=== PATIENT | female | born 1985 ===

== ENCOUNTER 2018-05-06 15:34 | Inpatient (IN) | payer OTHER ==
[~2018-05-06] VITALS: Ht 157.5 cm; Wt 77.1 kg
[2018-05-06] MEDS ORDERED: ONDANSETRON 4 MG/2 ML VIAL ONE (16:27)
[2018-05-06] MEDS ORDERED: HYDROMORPHONE 2 MG/1 ML DISP.SYRIN ONE (16:27)
[2018-05-06] MEDS ORDERED: ONDANSETRON 4 MG/2 ML VIAL IV ONE (16:30)
[2018-05-06] MEDS ORDERED: HYDROMORPHONE 1 MG/1 ML DISP.SYRIN IV ONE (16:30)
[2018-05-06] MEDS ORDERED: IV NORMAL SALINE 1000 ML BAG IV ONE (16:30)
[2018-05-06 16:39] LABS: BASOPHILS # (AUTO) 0.1 K/uL (0.0-8.0); BASOPHILS % (AUTO) 0.4 % (0.0-2.0); EOSINOPHILS % (AUTO) 0.1 % (0.0-7.0); HEMATOCRIT 40.6 % (31.2-41.9); HEMOGLOBIN 13.4 g/dL (10.9-14.3); LYMPHOCYTES # (AUTO) 1.7 K/uL (20.0-40.0); LYMPHOCYTES % (AUTO) 11.9 % (20.5-51.5); MEAN CORPUSCULAR HEMOGLOBIN 25.3 uug (24.7-32.8); MEAN CORPUSCULAR HGB CONC 33 g/dL (32.3-35.6); MEAN CORPUSCULAR VOLUME 76.8 fL (75.5-95.3); MONOCYTES # (AUTO) 0.4 K/uL (2.0-10.0); MONOCYTES % (AUTO) 2.9 % (0.0-11.0); NEUTROPHILS # (AUTO) 12.1 K/uL (1.8-8.9); NEUTROPHILS % (AUTO) 84.7 % (38.5-71.5); PLATELET COUNT (AUTO) 423 K/uL (179-408); RED BLOOD CELL COUNT(AUTO) 5.28 MIL/uL (3.63-4.92); WHITE BLOOD COUNT (AUTO) 14.3 K/uL (3.8-11.8)
[2018-05-06 16:48] LABS: BILIRUBIN,DIRECT 0.1 mg/dL (0.0-0.2); BILIRUBIN,TOTAL 0.6 mg/dL (0.2-1.0); CREATININE 0.8 mg/dL (0.6-1.3); POTASSIUM 3.7 mmol/L (3.5-5.1); TOTAL PROTEIN, SERUM 8.4 g/dL (6.4-8.2)
--- NOTE | 2018-05-06 17:54 | NUR ---
PT OUT OF ER FOR CT.
[2018-05-06 18:07] LABS: *BILIRUBIN,URIN NEGATIVE (NEGATIVE); *BLOOD, URINE NEGATIVE (NEGATIVE); *CLARITY,URINE SLIGHTLY CLOUDY (CLEAR); *COLOR,URINE YELLOW (YELLOW); *KETONES,URINE TRACE (NEGATIVE); *PROTEIN,URINE NEGATIVE (NEGATIVE); *UROBILINOGEN,URINE 0.2 E.U./dl (NORMAL); LEUKOCYTE ESTERASE ,URINE NEGATIVE (NEGATIVE); NITRITE, URINE NEGATIVE (NEGATIVE); PH,URINE 8.5 (5.0-8.0); UGLUCOSE NEGATIVE (NEGATIVE)
[2018-05-06 18:09] LABS: *URINE HCG, QUAL NEGATIVE (NEGATIVE)
[2018-05-06 18:13] LABS: BACTERIA,URINE RARE /HPF (NONE SEEN); RBC,URINE 0-3 /HPF (0-3); SQUAMOUS EPITHELIAL CELL,UR MODERATE /HPF (NONE SEEN)
--- NOTE | 2018-05-06 18:37 | NUR ---
Patient is resting comfortably in bed with eyes closed, NAD noted. at the bedside.
--- NOTE | 2018-05-06 19:00 | NUR ---
RECEIVED SHIFT REPORT FROM LYDIA LOBO.
--- NOTE | 2018-05-06 19:19 | NUR ---
ARMANDO BYRNES AT BEDSIDE FOR PT UPDATE.
--- NOTE | 2018-05-06 19:26 | NUR ---
PAGED EPIC FOR PANEL CALL. AWAITING CALL BACK FROM REAGAN GLASS NP. ATTEMPT 1.
--- NOTE | 2018-05-06 19:41 | NUR ---
DR. SINGH SPEAKING TO REAGAN CARRION NP ([facility])
--- NOTE | 2018-05-06 19:48 | NUR ---
GAVE ADMITTING REPORT TO LYDIA MORA.
[2018-05-06 20:00] VITALS: BP 103/56
[2018-05-06] MEDS ORDERED: MORPHINE SULFATE 4 MG/1 ML DISP.SYRIN IV PRN (20:00)
[2018-05-06] MEDS ORDERED: ACETAMINOPHEN 325 MG TABLET PO PRN (20:00)
[2018-05-06] MEDS ORDERED: MAGNESIUM HYDROXIDE 30 ML LIQUID UDC PO PRN (20:00)
[2018-05-06] MEDS ORDERED: Z GUARD REMEDY PASTE 57 GM TUBE TOP PRN (20:00)
[2018-05-06] MEDS ORDERED: ONDANSETRON 4 MG/2 ML VIAL IV PRN (20:00)
--- NOTE | 2018-05-06 20:00 | NUR ---
Received patient from ER in stable condition. No acute distress noted. Admit Dx: Small Bowel Obstruction under [employer] Chelsey Lester. Vital signs within range upon admission. Patient denying pain/SOB. Denying N/V. A/Ox4 & able to make all her needs known. Noted with 20G right AC IV site which is patent & flushing well. Per MD order, patient to NPO. currently at the bedside. Skin intact. Bed in low position, locked, side rails up. Call light within reach. Will continue to monitor through shift.
--- NOTE | 2018-05-06 20:04 | NUR ---
APt. admitted to [facility], under care of REAGAN CARRION NP. Belongs List completed.
[2018-05-06] MEDS: DOCUSATE SODIUM 100 MG CAPSULE PO SCH (21:00)
[2018-05-06] MEDS: IV D5W-0.45% NS +20 KCL 1,000 ML IV PRN (23:33)
[2018-05-07 04:00] VITALS: BP 103/47
[2018-05-07 06:34] LABS: BASOPHILS % (AUTO) 0.5 % (0.0-2.0); EOSINOPHILS # (AUTO) 0.1 K/uL (0.0-0.7); EOSINOPHILS % (AUTO) 1.5 % (0.0-7.0); LYMPHOCYTES # (AUTO) 3.1 K/uL (20.0-40.0); LYMPHOCYTES % (AUTO) 34.8 % (20.5-51.5); MEAN CORPUSCULAR HEMOGLOBIN 26.4 uug (24.7-32.8); MEAN CORPUSCULAR HGB CONC 34 g/dL (32.3-35.6); MEAN CORPUSCULAR VOLUME 78.1 fL (75.5-95.3); MONOCYTES # (AUTO) 0.5 K/uL (2.0-10.0); MONOCYTES % (AUTO) 6.2 % (0.0-11.0); NEUTROPHILS # (AUTO) 5.1 K/uL (1.8-8.9); PLATELET COUNT (AUTO) 361 K/uL (179-408); RED BLOOD CELL COUNT(AUTO) 4.65 MIL/uL (3.63-4.92)
--- NOTE | 2018-05-07 06:34 | NUR ---
Slept well during the night. No complaints of pain & N/V. Compliant with care. All needs attended to. Medications given as ordered. Vital signs within range. Safety measures implemented. Call light within reach. Will endorse accordingly.
[2018-05-07 06:38] LABS: CREATININE 0.7 mg/dL (0.6-1.3); MAGNESIUM 1.9 mg/dL (1.8-2.4); PHOSPHOROUS 3.4 mg/dL (2.5-4.9); POTASSIUM 3.8 mmol/L (3.5-5.1)
[2018-05-07 06:45] LABS: THYROID STIMULATING HORMONE 0.247 mIU/mL (0.358-3.740)
[2018-05-07 06:47] LABS: HEMATOCRIT 36.4 % (31.2-41.9); HEMOGLOBIN 12.3 g/dL (10.9-14.3); WHITE BLOOD COUNT (AUTO) 8.9 K/uL (3.8-11.8)
--- NOTE | 2018-05-07 07:17 | NUR ---
PT RECEIVED IN BED AWAKE .PT IS AXOX4 BRP ,NO C/O PAIN NOTED AT THIS TIME.
[2018-05-07] MEDS: PANTOPRAZOLE SODIUM 40 MG VIAL IV SCH (08:04)
[2018-05-07] MEDS ORDERED: DIATR MEGLU/DIATRIZOATE SODIUM 120 ML BOTTLE ONE (08:56)
[2018-05-07] MEDS ORDERED: DIATR MEGLU/DIATRIZOATE SODIUM 30 ML SOLUTION ONE (09:04)
[2018-05-07] MEDS: IV D5W-0.45% NS +20 KCL 1,000 ML IV PRN (11:16)
[2018-05-07 11:31] VITALS: BP 119/63
[2018-05-07 15:27] VITALS: BP 100/53
--- NOTE | 2018-05-07 19:42 | NUR ---
RECEIVED PT AWAKE, ALERT ,AND ORIETED X4. . PT SHOWS NO SIGNS OF DISTRESS. IV INTACT AND PATENT. CALL LIGHT WITHIN REACH. SAFETY AND COMFORT PROVIDED. WILL CONTINUE TO MONITOR.
[2018-05-07] MEDS: DOCUSATE SODIUM 100 MG CAPSULE PO SCH (20:15)
[2018-05-07 20:21] VITALS: BP 124/51
[2018-05-08] MEDS: IV D5W-0.45% NS +20 KCL 1,000 ML IV PRN (03:11)
[2018-05-08 04:45] VITALS: BP 118/66
--- NOTE | 2018-05-08 06:14 | NUR ---
PT SLEPT THROUGHOUT THE SHIFT. PT IV INTACT AND PATENT. SAFETY AND COMFORT PROVIDED.PRESCRIBED MEDICATION GIVEN AND PT TOLERATED IT WELL. SAFETY AND COMFORT PROVIDED. ALL NEEDS ARE MET. WILL ENDORSE ACCORDINGLY TO DAYSHIFT NURSE FOR CONTINUITY OF CARE.
[2018-05-08 06:56] LABS: BASOPHILS % (AUTO) 0.5 % (0.0-2.0); EOSINOPHILS # (AUTO) 0.1 K/uL (0.0-0.7); EOSINOPHILS % (AUTO) 0.7 % (0.0-7.0); HEMATOCRIT 36.9 % (31.2-41.9); HEMOGLOBIN 12.3 g/dL (10.9-14.3); LYMPHOCYTES # (AUTO) 1.2 K/uL (20.0-40.0); LYMPHOCYTES % (AUTO) 14.4 % (20.5-51.5); MEAN CORPUSCULAR HEMOGLOBIN 25.9 uug (24.7-32.8); MEAN CORPUSCULAR HGB CONC 33 g/dL (32.3-35.6); MEAN CORPUSCULAR VOLUME 77.8 fL (75.5-95.3); MONOCYTES # (AUTO) 0.4 K/uL (2.0-10.0); MONOCYTES % (AUTO) 4.5 % (0.0-11.0); NEUTROPHILS # (AUTO) 6.8 K/uL (1.8-8.9); NEUTROPHILS % (AUTO) 79.9 % (38.5-71.5); PLATELET COUNT (AUTO) 322 K/uL (179-408); RED BLOOD CELL COUNT(AUTO) 4.74 MIL/uL (3.63-4.92); WHITE BLOOD COUNT (AUTO) 8.5 K/uL (3.8-11.8)
[2018-05-08 07:15] LABS: CREATININE 0.8 mg/dL (0.6-1.3); MAGNESIUM 1.7 mg/dL (1.8-2.4); PHOSPHOROUS 3.1 mg/dL (2.5-4.9); POTASSIUM 3.9 mmol/L (3.5-5.1)
[2018-05-08] MEDS: PANTOPRAZOLE SODIUM 40 MG VIAL IV SCH (09:19)
--- NOTE | 2018-05-08 10:05 | NUR ---
Received patient awake in stable condition. Continue IV D5 1/2NS% 1000ml with potassium 20meq running 75cc/hr.awaiting discharge order. Patient verbalize desire to go home. no bowel movement this morning. will continue monitor
[2018-05-08] MEDS ORDERED: ACET325T53 PO (10:26)
[2018-05-08] MEDS ORDERED: MAGNESIUM OXIDE 400 MG TABLET PO ONE (10:30)
--- NOTE | 2018-05-08 11:01 | NUR ---
Patient given magnesium oxide 800mg PO for low magnesium. discharge to home in stable condition at 11am in stable condition via private car. aware.
== END 2018-05-08 11:00 | disposition home or self-care (01) | DRG 247 ==
LOC: ER 15:36 → MED 19:50
PROVIDERS: ADMIT Registered Nurse; ATTEND Registered Nurse
DX: K56.600 Partial intestinal obstruction, unspecified as to cause (principal); E83.42 Hypomagnesemia; E66.9 Obesity, unspecified; K52.9 Noninfective gastroenteritis and colitis, unspecified; Z68.31 Body mass index [BMI] 31.0-31.9, adult; Z71.3 Dietary counseling and surveillance; E83.51 Hypocalcemia; R94.6 Abnormal results of thyroid function studies; R74.0 Nonspecific elevation of levels of transaminase and lactic acid dehydrogenase [LDH]; N93.9 Abnormal uterine and vaginal bleeding, unspecified
CPT/HCPCS: 36415; 74250; 83690; 83735; 84100; 84443; 84703; 85025; 87077; 87086; A4663; C9113; G0378; J1170; J2405; J3490; J7030; Q9963